=== PATIENT | female | born 1970 | race Caucasian/White ===

== ENCOUNTER 2021-01-10 21:33 | Emergency (ER) | payer BC, OTHER ==
[2021-01-10] MEDS ORDERED: Sodium Chloride 0.9% 10 ML Syringe FLUSH PRN (21:56)
[2021-01-10] MEDS ORDERED: Ondansetron 4 MG Tab.DIS PO ONE (22:14)
[2021-01-10] MEDS ORDERED: Ketorolac 30 MG/ML SDV IVPUSH ONE (22:14)
[2021-01-10] MEDS ORDERED: Ondansetron 4 MG/2 ML SDV IVPUSH ONE (22:17)
--- NOTE | 2021-01-10 22:26 | EDM.PDOC ---
<Janeen Henderson - Last Filed: 01/10/21 23:12> ED HPI GENERAL MEDICAL PROBLEM - General Chief Complaint: Flank Pain Stated Complaint: RT SIDE PAIN Time Seen by Provider: 01/10/21 21:56 Source of Information: Reports: Patient, RN Notes Reviewed History Limitations: Reports: No Limitations - History of Present Illness INITIAL COMMENTS - FREE TEXT/NARRATIVE: Patient is a 50-year-old female presenting to the emergency department with complaints of sudden onset of intense right flank pain. Patient describes it as a sharp stabbing sensation which "came out of nowhere ". She has felt very nauseous since its onset but has not no vomiting thus far. She does report that she is had intermittent dysuria for the last few months which she related to her menopause symptoms. She is had no fever or chills. Prior to onset of this pain, she felt well today. Denies any history of kidney stones. Right Flank Pain Score (Numeric/FACES): 8 - Related Data Allergies Allergy/AdvReac Type Severity Reaction Status Date / Time acetaminophen [From Percocet] Allergy Hypertensio Verified 01/10/21 21:58 n codeine Allergy Hypertensio Verified 01/10/21 21:58 n hydrocodone Allergy Hypertensio Verified 01/10/21 21:58 n meperidine [From Demerol] Allergy Hypertensio Verified 01/10/21 21:58 n oxycodone [From Percocet] Allergy Hypertensio Verified 01/10/21 21:58 n propoxyphene Allergy Hypertensio Verified 01/10/21 21:58 [From Darvocet-N] n Home Meds: Home Meds Tamsulosin HCl [Flomax] 0.4 mg PO DAILY #7 cap.er.24h 01/10/21 [Rx] Past Medical History Cardiovascular History: Reports: Hypertension Genitourinary History: Reports: Pyelonephritis - Infectious Disease History Infectious Disease History: Reports: Measles - Past Surgical History HEENT Surgical History: Reports: Adenoidectomy, Tonsillectomy GI Surgical History: Reports: Cholecystectomy Social & Family History - Tobacco Use Tobacco Use Status *Q: Current Every Day Tobacco User Years of Tobacco use: 20 Packs/Tins Daily: 0.3 - Caffeine Use Caffeine Use: Reports: Soda - Recreational Drug Use Recreational Drug Use: No ED ROS GENERAL - Review of Systems Review Of Systems: Comprehensive ROS is negative, except as noted in HPI. ED EXAM, RENAL/ - Physical Exam Exam: See Below Exam Limited By: No Limitations General Appearance: Alert, Mild Distress Respiratory/Chest: No Respiratory Distress, Lungs Clear, Normal Breath Sounds, No Accessory Muscle Use, Chest Non-Tender Cardiovascular: Normal Peripheral Pulses, Regular Rate, Rhythm, No Edema, No Gallop, No JVD, No Murmur, No Rub Back Exam: Normal Inspection, Full Range of Motion. No: CVA Tenderness (L), CVA Tenderness (R) Neurological: Alert, Oriented, CN II-XII Intact, Normal Cognition, Normal Gait, Normal Reflexes, No Motor/Sensory Deficits Psychiatric: Normal Affect, Normal Mood Skin Exam: Warm, Dry, Intact, Normal Color, No Rash Course - Re-Assessments/Exams Free Text/Narrative Re-Assessment/Exam: a 50-year-old female presenting to the emergency department with complaints of acute onset of severe right flank pain. Presentation is concerning for kidney stone, however patient does not have any significant right-sided CVA tenderness. She does have allergies to most narcotic pain medications and states that she does not want to risk having a reaction by taking medication in that family. I have ordered blood work, urinalysis, and CT scan of the abdomen pelvis without contrast. We will give her Toradol 30 mg IV as well as Zofran 4 mg IV. 01/10/21 23:[address] Mata at end of shift. He will assume care and disposition of the patient. Departure - Departure Disposition: Home, Self-Care 01 Clinical Impression: Ureteric colic, Kidney stone, Ureteral calculus, right, Fibroid - Discharge Information Prescriptions: Tamsulosin HCl [Flomax] 0.4 mg PO DAILY #7 cap.er.24h Referrals: Juan Antonio Headley MD [Primary Care Provider] - 1 Week Forms: ED Department Discharge Additional Instructions: Drink plenty of fluids. Take the flomax daily for a week. Take tylenol or motrin for pain. Follow up with Dr Headley within a week. Please return if you are worse. Sepsis Event Note (ED) - Evaluation Sepsis Screening Result: No Definite Risk <Reymundo Mata - Last Filed: 01/10/21 23:42> Course - Vital Signs Last Recorded V/S: Last Vital Signs Temp 97.6 F 01/10/21 21:52 Pulse 83 01/10/21 21:52 Resp 20 01/10/21 21:52 BP 183/110 H 01/10/21 21:52 Pulse Ox 93 L 01/10/21 21:52 - Orders/Labs/Meds Orders: Active Orders 24 hr Category Date Time Status Peripheral IV Care [RC] . DIRECTED Care 01/10/21 21:57 Active Abdomen Pelvis wo Cont [CT] Stat Exams 01/10/21 22:15 Taken Sodium Chloride 0.9% [Saline Flush] Med 01/10/21 21:56 Active 10 ml FLUSH ASDIRECTED PRN Peripheral IV Insertion Adult [OM.PC] Stat Oth 01/10/21 21:57 Ordered Medication Orders Sodium Chloride (Sodium Chloride 0.9% 10 Ml Syringe) 10 ml FLUSH ASDIRECTED PRN PRN Reason: Keep Vein Open Last Admin: 01/10/21 22:38 Dose: 10 ml Documented by: CRAIG Labs: Laboratory Tests 01/10/21 01/10/21 01/10/21 Range/Units 22:05 22:35 22:35 WBC 8.63 (3.98-10.04) K/mm3 RBC 4.77 (3.98-5.22) M/mm3 Hgb 14.6 (11.2-15.7) gm/dl Hct 44.2 (34.1-44.9) % MCV 92.7 (79.4-94.8) fl MCH 30.6 (25.6-32.2) pg MCHC 33.0 (32.2-35.5) g/dl RDW Std Deviation 45.1 (36.4-46.3) fL Plt Count 261 (182-369) K/mm3 MPV 10.3 (9.4-12.3) fl Neut % (Auto) 60.0 (34.0-71.1) % Lymph % (Auto) 25.7 (19.3-51.7) % Gillespie % (Auto) 11.7 (4.7-12.5) % Eos % (Auto) 1.5 (0.7-5.8) Baso % (Auto) 0.6 (0.1-1.2) % Neut # (Auto) 5.18 (1.56-6.13) K/mm3 Lymph # (Auto) 2.22 (1.18-3.74) K/mm3 Gillespie # (Auto) 1.01 H (0.24-0.36) K/mm3 Eos # (Auto) 0.13 (0.04-0.36) K/mm3 Baso # (Auto) 0.05 (0.01-0.08) K/mm3 Sodium 140 (136-145) mEq/L Potassium 4.5 (3.5-5.1) mEq/L Chloride 104 (98-107) mEq/L Carbon Dioxide 28 (21-32) mEq/L Anion Gap 12.5 (5-15) BUN 15 (7-18) mg/dL Creatinine 0.8 (0.55-1.02) mg/dL Est Cr Clr Drug Dosing 66.54 mL/min Estimated GFR (MDRD) > 60 (>60) mL/min BUN/Creatinine Ratio 18.8 H (14-18) Glucose 120 H (70-99) mg/dL Calcium 9.0 (8.5-10.1) mg/dL Total Bilirubin 0.2 (0.2-1.0) mg/dL AST 33 (15-37) U/L ALT 87 H (14-59) U/L Alkaline Phosphatase 86 (46-116) U/L C-Reactive Protein 0.6 (<1.0) mg/dL Total Protein 7.7 (6.4-8.2) g/dl Albumin 3.8 (3.4-5.0) g/dl Globulin 3.9 gm/dL Albumin/Globulin Ratio 1.0 (1-2) Urine Color Yellow (Yellow) Urine Appearance Clear (Clear) Urine pH 6.0 (5.0-8.0) Ur Specific Sterling > or = 1.030 (1.005-1.030) Urine Protein Negative (Negative) Urine Glucose (UA) Negative (Negative) Urine Ketones Trace H (Negative) Urine Occult Blood 2+ H (Negative) Urine Nitrite Negative (Negative) Urine Bilirubin Negative (Negative) Urine Urobilinogen 0.2 (0.2-1.0) Ur Leukocyte Esterase Negative (Negative) Urine RBC 5-10 H (0-5) /hpf Urine WBC 0-5 (0-5) /hpf Ur Squamous Epith Cells 5-10 H (0-5) /hpf Urine Bacteria Many H (FEW) /hpf Urine Mucus Many H (FEW) /hpf Meds: Medications Generic Name Dose Route Start Last Admin Trade Name Will PRN Reason Stop Dose Admin Sodium Chloride 10 ml 01/10/21 21:56 01/10/21 22:38 Sodium Chloride 0.9% 10 Ml Syringe FLUSH 10 ml ASDIRECTED PRN Administration Keep Vein Open Discontinued Medications Generic Name Dose Route Start Last Admin Trade Name Will PRN Reason Stop Dose Admin Ketorolac Tromethamine 30 mg 01/10/21 22:14 01/10/21 22:38 Ketorolac 30 Mg/Ml Sdv IVPUSH 01/10/21 22:15 30 mg ONETIME ONE Administration Ondansetron HCl 4 mg 01/10/21 22:17 01/10/21 22:37 Ondansetron 4 Mg/2 Ml Sdv IVPUSH 01/10/21 22:18 4 mg ONETIME ONE Administration - Re-Assessments/Exams Free Text/Narrative Re-Assessment/Exam: 01/10/21 23:36 Taking over for Janeen. Her CBC looks good. Her glucose was a little elevated at 120. Her ALT was elevated at 87. Her CRP was normal. Her UA had blood but no UTI. 01/10/21 23:[address] shows mild right hydro ureteral nephrosis. There is a punctate calculus distal right ureter best appreciated on coronal image 65. There is a calcified fibroid. She feels better. I will give her a dose of flomax here and a prescription for more. She reacts to most pain meds so I will not be giving her any of those. She will take tylenol or motrin. Departure - Departure Time of Disposition: 23:45 Condition: Good - Discharge Information *PRESCRIPTION DRUG MONITORING PROGRAM REVIEWED*: Not Applicable *COPY OF PRESCRIPTION DRUG MONITORING REPORT IN PATIENT KAREN: Not Applicable Sepsis Event Note (ED) - Focused Exam Vital Signs: Vital Signs Temp Pulse Resp BP Pulse Ox 01/10/21 21:52 97.6 F 83 20 183/110 H 93 L
[2021-01-10] MEDS ORDERED: Tamsulosin 0.4 MG Cap.ER PO ONE (23:37)
--- NOTE | 2021-01-11 07:26 | CT ---
CT abdomen and pelvis Technique: Multiple axial sections were obtained from above the dome of the diaphragm inferiorly through the pubic symphysis. Intravenous and oral contrast were not utilized. Reconstructed coronal and sagittal images were obtained. Comparison: No prior CT exam is available, prior right upper quadrant abdominal ultrasound of 07/25/10 is available. Findings: Right ureter is mildly prominent in size. There is a very small calcification being seen within the distal right ureter measuring about 2 mm. This may represent a very minimal stone. No left-sided ureteral dilatation is seen. No renal calcifications are seen. Visualized lung bases show nothing acute. Noncontrast appearance of the liver shows no focal abnormality. Spleen size is normal. Adrenal glands show no nodule. No abnormality is appreciated within the pancreas. Surgical clips are seen from prior cholecystectomy. Abdominal aorta shows no aneurysm. Mild atherosclerotic calcification is seen within the aorta and iliac vessels. Large calcified uterine fibroid is seen within the uterus measuring about 6.6 cm in size. No additional pelvic abnormality is appreciated. Appendix is seen which is normal in size. Bone window settings were reviewed which show mild scattered degenerative change within the spine, sacroiliac joints and mild degenerative change within both hips. Impression: 1. Mildly dilated right ureter. 2 mm stone is felt to be present within the distal right ureter. 2. Other chronic findings as noted above. Diagnostic code #3 I agree with preliminary report from [facility], finalized on 01/11/21, 12:18 AM CDT, code 1
== END 2021-01-11 00:03 | disposition home or self-care (01) ==
LOC: JD.ED 21:33
DX: N13.2 Hydronephrosis with renal and ureteral calculous obstruction (principal); D21.9 Benign neoplasm of connective and other soft tissue, unspecified; I10 Essential (primary) hypertension; Z72.0 Tobacco use; Z88.5 Allergy status to narcotic agent
CPT/HCPCS: 36415; 74176; 80053; 81001; 85025; 86140; 96374; 96375; 99284; A9270; J1885; J2405

== ENCOUNTER 2023-03-20 11:24 | Emergency (ER) | payer BC ==
[2023-03-20] MEDS ORDERED: Albuterol 0.083% 2.5 MG/3 ML Neb Soln NEB ONE (11:51)
[2023-03-20 12:13] LABS: BASOPHILS PERCENT AUTO 0.7 % (0.0-1.0); EOSINOPHILS ABSOLUTE AUTO 0.2 K/mm3 (0.0-0.4); EOSINOPHILS PERCENT AUTO 2.7 % (0.0-6.0); HEMATOCRIT 44.7 % (37.0-47.0); HEMOGLOBIN 14.5 gm/dl (12.0-16.0); IMMATURE GRAN ABSOLUTE AUTO 0.03 K/mm3 (0.00-0.05); IMMATURE GRAN PERCENT AUTO 0.5 % (0.0-0.4); LYMPHOCYTES ABSOLUTE AUTO 1.4 K/mm3 (1.0-4.8); LYMPHOCYTES PERCENT AUTO 23.7 % (24.0-44.0); MEAN CORPUSCULAR HGB CONC 32.4 g/dl (32.0-36.0); MEAN CORPUSCULAR VOLUME 89.4 fl (83.0-99.0); MEAN PLATELET VOLUME 9.5 fl (9.4-12.3); MONOCYTES ABSOLUTE AUTO 0.6 K/mm3 (0.0-0.8); MONOCYTES PERCENT AUTO 10.1 % (0.0-8.0); NEUTROPHILS ABSOLUTE AUTO 3.7 K/mm3 (1.8-7.7); NEUTROPHILS PERCENT AUTO 62.3 % (41.0-71.0); PLATELET COUNT,PLT 206 K/mm3 (150-400); WHITE BLOOD CELL COUNT,WBC 5.86 K/mm3 (3.9-11.3)
[2023-03-20 12:35] LABS: A/G RATIO 0.7 (1-2); ALBUMIN 3.4 g/dl (3.4-5.0); ANION GAP 11.3 (5-15); BILIRUBIN TOTAL 0.5 mg/dL (0.2-1.0); BUN/CREATININE RATIO 14.4 (14-18); C-REACTIVE PROTEIN 1.1 mg/dL (<1.0); CALCIUM 10.1 mg/dL (8.5-10.1); CREATININE 0.9 mg/dL (0.55-1.02); EST CRCL DRUG DOSING (CG) 57.83 mL/min; POTASSIUM,K 4.3 mEq/L (3.5-5.1); PROTEIN TOTAL,TP 8.4 g/dl (6.4-8.2)
[2023-03-20 12:55] LABS: CORONAVIRUS COVID-19 NAA NEGATIVE (NEGATIVE); INFLUENZA A NAA NEGATIVE (NEGATIVE)
== END 2023-03-20 13:37 | disposition home or self-care (01) ==
LOC: JD.ED 11:24
DX: R09.02 Hypoxemia (principal); I10 Essential (primary) hypertension; Z88.8 Allergy status to other drugs, medicaments and biological substances; Z79.2 Long term (current) use of antibiotics; Z86.16 Personal history of COVID-19; Z90.49 Acquired absence of other specified parts of digestive tract; Z79.899 Other long term (current) drug therapy; Z87.891 Personal history of nicotine dependence; Z20.822 Contact with and (suspected) exposure to COVID-19
CPT/HCPCS: 0240U; 36415; 71046; 80053; 85025; 86140; 94640; 99285; 99283; J7620-GY